=== PATIENT | female | born 1975 ===

== ENCOUNTER 2019-03-25 09:42 | Outpatient (CLI) | payer OTHER ==
[~2019-03-25] VITALS: Ht 106.7 cm; Wt 68.0 kg
[2019-03-25 09:57] VITALS: BP 116/73
[2019-03-25 10:39] LABS: BASOPHILS % (AUTO) 0 % (0-10); EOSINOPHILS % (AUTO) 13 % (0-10); HEMATOCRIT 36 % (35-52); HEMOGLOBIN 11.5 G/DL (11.5-16.0); LYMPHOCYTES % (AUTO) 41 % (12-44); MEAN CORPUSCULAR HEMOGLOBIN 28 PG (25-34); MEAN CORPUSCULAR HGB CONC 32 G/DL (32-36); MEAN CORPUSCULAR VOLUME 86 FL (80-99); MEAN PLATELET VOLUME 11.5 FL (7.4-10.4); MONOCYTES # (AUTO) 0.5 X 10^3 (0.0-1.0); MONOCYTES % (AUTO) 7 % (0-12); NEUTROPHILS # (AUTO) 2.9 X 10^3 (1.8-7.8); NEUTROPHILS % (AUTO) 39 % (42-75); PLATELET COUNT 334 10^3/uL (130-400); RED CELL DISTRIBUTION WIDTH 15.3 % (10.0-14.5); WHITE BLOOD COUNT 7.4 10^3/uL (4.3-11.0)
[2019-03-25 11:14] LABS: EOSINOPHILS % (MANUAL) 11 %; LYMPHOCYTES % (MANUAL) 44 %; MONOCYTES % (MANUAL) 5 %; NEUTROPHILS % (MANUAL) 40 %; RBC MORPH NORMAL
[2019-03-31] MEDS ORDERED: IBUP-1780 PO (06:55)
[2019-03-31] MEDS ORDERED: ACET-77 PO (06:55)
[2019-03-31] MEDS ORDERED: DOCU100C37 PO (06:55)
[2019-03-31] MEDS ORDERED: OXC5T PO (06:55)
== END 2019-03-25 11:01 | disposition home or self-care (01) ==
LOC: PREOP 09:42
PROVIDERS: ATTEND Obstetrics & Gynecology
DX: Z01.818 Encounter for other preprocedural examination (principal); M48.02 Spinal stenosis, cervical region; T83.39XA Other mechanical complication of intrauterine contraceptive device, initial encounter; R10.2 Pelvic and perineal pain
CPT/HCPCS: 36415; 85007; 85027; 86850; 86900; 86901; 87081

== ENCOUNTER 2019-03-30 06:09 | Inpatient (IN) | payer OTHER ==
[~2019-03-30] VITALS: Ht 106.7 cm; Wt 68.0 kg
[2019-03-30] VITALS (13 sets, daily range): BP systolic 118–161; BP diastolic 60–92
[2019-03-30] MEDS ORDERED: metroNIDAZOLE 500MG/100ML IVPB 100 ML IV ONE (06:15)
[2019-03-30] MEDS ORDERED: ceFAZolin 2 GM/50 ML NS 50 ML IV ONE (06:15)
[2019-03-30] MEDS: LACTATED RINGERS 1,000 ML IV PRN ×4 (06:35→18:10)
[2019-03-30] MEDS ORDERED: ROCURONIUM 10 MG/ML 5 ML SYRINGE IV ONE (06:45)
[2019-03-30] MEDS ORDERED: SEVOFLURANE (ULTANE) 15 ML INHAL SOLN ONE ×2 (06:45→09:02)
[2019-03-30] MEDS ORDERED: ONDANSETRON 4 MG/2 ML (SDV) Z0FRAN ONE (06:45)
[2019-03-30] MEDS ORDERED: CATHETER FLUSH 10 ML SYR IV PRN (06:45)
[2019-03-30] MEDS ORDERED: MIDAZOLAM 2 MG/2 ML (VERSED) VIAL ONE (06:45)
[2019-03-30] MEDS ORDERED: fentaNYL INJECTION 100 MCG/2 ML AMP ONE ×2 (06:45→10:23)
[2019-03-30] MEDS ORDERED: DEXAMETHASONE 10 MG/ML (DECADRON) 1 ML VIAL ONE (06:45)
[2019-03-30] MEDS ORDERED: proPOfol 200 MG/20 ML (DIPRIVAN) VIAL IV ONE (06:45)
[2019-03-30] MEDS ORDERED: LIDOCAINE PF 2% 5 ML (XYLOCAINE) VIAL ONE (06:45)
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
[2019-03-30] MEDS ORDERED: ROPIVACAINE 5MG/ML 30ML VIAL ONE (07:00)
[2019-03-30] MEDS ORDERED: HYDROmorphone 2 MG/ML VIAL (DILAUDID) ONE (07:43)
[2019-03-30] MEDS ORDERED: GLYCOPYRROLATE 0.2 MG/ML (ROBINUL) 2 ML VIAL ONE (07:44)
[2019-03-30] MEDS ORDERED: NEOSTIGMINE 3 MG/3 ML VIAL ONE (07:44)
[2019-03-30] MEDS: KETOROLAC 30 MG/ML VIAL IVP SCH ×3 (08:30→18:55)
[2019-03-30] MEDS ORDERED: KETOROLAC 30 MG/ML VIAL ONE (08:33)
[2019-03-30] MEDS ORDERED: D5 LR IV SOLUTION 1,000 ML IV SCH (09:04)
--- NOTE | 2019-03-30 09:04 | Operative Report ---
Operative Report Date of Procedure/Surgery Mar 30, 2019 Surgeon (s) LANE COLLINS DO Clerical Aide Teacher (s): None Post-Operative Diagnosis Pelvic Pain 2. Cervical Stenosis 3. IUD in place Procedure Performed Total Abdominal Hysterectomy with Bilateral Salpingo-oophorectomy Description of Procedure Anesthesia Type: General Estimated blood loss (mL): 250 ml Specimen(s) collected/removed Uterus (with IUD in place), Fallopian Tubes, Ovaries, Old Skin Scar Packing: None Description of the Procedure Ms. Gray was taken to the Operating Room with IV fluids running. Once in the OR, general anesthesia was administered without difficulty. A Masterson cathete r was inserted. In the supine position she was prepped and draped in the normal sterile fashion. A vertical elliptical incision was made over her previous skin scar. The old skin skin scar was removed and sent to pathology. The incision was carried down to the underlying layer of the fascia. The fascia was nicked in the midline. This incision was extended superiorly and inferiorly. The rectus muscle was dissected off bluntly and sharply, then in the midline. The peritoneum was identified, entered sharply, extended superiorly and inferiorly. The O'Marty-O'Kelly self-retaining retractor was inserted. The bowel was packed away with moist laparotomy sponges. The uterus was grasped with the Melvi clamp. The round ligaments were identified, doubly clamped, cut and suture ligated with 0-Vicryl. The vesicouterine peritoneum was transected and the bladder was manually pushed caudally with a Raytec sponge. The infundibulopelvic ligament, bilaterally was doubly clamped, transected and suture ligated with 0-Vicryl. The fallopian tubes and ovaries were removed to increase visualization. The remainder of the broad ligament and uterine vessels were serially clamped, transected and suture ligated with 0-Vicryl. The uterus was then excised from the vaginal confines. The vaginal cuff was closed with 0- Vicryl and attached to the round ligaments. The vesicouterine peritoneum was reapproximated. A moderate amount of irrigation was undertaken. Hemostasis was noted throughout the pelvic cavity. The peritoneum was approximated with 3-0 Vicryl. The fascia was closed 0-Vicryl. The subcutaneous tissues were approximated with 3-0 Plain Gut. The skin was closed in an interrupted manner with 4-0 Monocryl. A sterile bandage was applied. Sponge, needle and instrument counts were correct x 3. She was taken to the Recovery Room in good and stable condition. Findings of the Procedure Normal appearing uterus, tubes and ovaries. Allergies and Home Medications Allergies Coded Allergies: No Known Drug Allergies (Unverified , 03/25/19) Home Medications No Active Prescriptions or Reported Meds Patient Home Medication List Home Medication List Reviewed: Yes LANE COLLINS DO Mar 30, 2019 09:04
[2019-03-30] MEDS ORDERED: ONDANSETRON 4 MG/2 ML (SDV) Z0FRAN IVP PRN ×3 (09:15)
[2019-03-30] MEDS ORDERED: fentaNYL INJECTION 100 MCG/2 ML AMP IVP PRN (09:15)
[2019-03-30] MEDS ORDERED: ACETAMINOPHEN 500 MG TAB (TYLENOL) PO PRN (09:15)
[2019-03-30] MEDS ORDERED: HYDROmorphone 2 MG/ML VIAL (DILAUDID) IV ONE (09:15)
--- NOTE | 2019-03-30 10:00 | NUR ---
Received report from Nadira Richard Rn from PACU. at bedside - and neither speak Eritrean well. VSS, leblanc patent with clear yellow urine. LCTA, bowel sounds hypoactive. IV in rt hand and infusing without difficulty. Pt denies nausea. Using phone for translation due to language barrier. SCD's on. Midline incision covered with original ABD dressing. Ice to incision.
[2019-03-30] MEDS ORDERED: LORazepam INJ 2 MG/ML (ATIVAN) VIAL IVP ONE (12:00)
[2019-03-30] MEDS ORDERED: NS IV 1000 ML 1,000 ML IV SCH ×3 (19:15→22:15)
--- NOTE | 2019-03-30 20:00 | NUR ---
Daughter present in room with mother, adult daughter interpret education and POC, No further questions from pt at this time.
[2019-03-30] MEDS ORDERED: ZOLPIDEM 5 MG (AMBIEN) TAB PO SCH (21:00)
[2019-03-31] MEDS: KETOROLAC 30 MG/ML VIAL IVP SCH (01:49)
[2019-03-31 04:00] VITALS: BP 113/59
[2019-03-31] MEDS ORDERED: BISACODYL 10 MG SUPP (DULCOLAX) PR NR (05:00)
[2019-03-31] MEDS ORDERED: MILK OF MAGNESIA 400 MG/5 ML 30 ML UDC PO NR ×2 (05:00→10:00)
--- NOTE | 2019-03-31 05:28 | NUR ---
Pt leblanc d/sarita and am medications given, pt resting in bed and will call when the need to void or a have a stool occurs
--- NOTE | 2019-03-31 05:49 | NUR ---
Pt up to void, 200ml of pink tinged urine, pt back to bed with no stool.
--- NOTE | 2019-03-31 06:37 | NUR ---
Dr Montes to see pt, dressing off and POC discussed, pt may discharge after BM and regular diet. Pt agrees with POC.
--- NOTE | 2019-03-31 06:45 | NUR ---
Pt up to void another 200 ml clear yellow urine.
--- NOTE | 2019-03-31 06:51 | Discharge Summary ---
Diagnosis/Chief Complaint Date of Admission Mar 30, 2019 at 06:09 Date of Discharge March 31, 2019 Discharge Date: Mar 31, 2019 Discharge Time: 12:00 Admission Diagnosis Admission Diagnosis Pelvic Pain 2. Cervical Stenosis 3. IUD in place Discharge Diagnosis Pelvic Pain 2. Cervical Stenosis 3. IUD in place Reason Hospital Visit Ms. Gray is admitted for scheduled surgery, Total Abdominal Hysterectomy with Bilateral Salpingo-oophorectomy secondary to uncontrolled pelvic pain, with an IUD in place and cervical stenosis Discharge Summary Hospital Course Was the Problem List Reviewed?: Yes Hospital Course Ms. Last was admitted for scheduled surgery, Total Abdominal Hysterectomy with Bilateral Salpingo-oophorectomy. The surgery was performed without comp lications. On her day of surgery, she was started on IV and oral pain medications along with other comfort measures--her day was unremarkable. Postoperative Day #1, she was given medications to increase her bowel function, her Masterson catheter was discontinued, she was allowed to ambulate and shower. Also, she was placed on oral pain medication only. At the time of my interview Ms. Gray was without complaint. Her vital signs remained stable throughout her hospitalization. Once she has a bowel movement and tolerates a Regular Diet she will be discharge to home with instructions, prescriptions and a follow up appointment. Procedures None. Discharge Physical Examination Allergies: Coded Allergies: No Known Drug Allergies (Unverified , 03/25/19) Vitals & I&Os Vital Signs Date Time Temp Pulse Resp B/P (MAP) Pulse Ox O2 Delivery O2 Flow Rate FiO2 03/31/19 04:00 37.8 93 16 113/59 96 Room Air 03/30/19 09:40 1 General Appearance: Alert, Oriented X3, Cooperative HEENT: Atraumatic Respiratory: Clear to Auscultation, Normal Air Movement Cardiovascular: Regular Rate, No Murmurs Abdominal: Normal Bowel Sounds, Soft, Other (Mildly tender, no rebound or guarding) Extremities: No Clubbing, No Cyanosis Skin: No Rashes Neuro: Normal Gait, Normal Speech Psych/Mental Status: Mental Status NL Discharge Home Medications Reviewed and agree with Discharge Medication list on patient's Discharge Instruction sheet Instructions to Patient/Family Please see electronic discharge instructions given to patient. Clinical Quality Measures DVT/VTE Risk/Contraindication: Risk Factor Score Per Nursin RFS Level Per Nursing on Admit: 1=Low/No VTE PPX SEALS,LANE E DO Mar 31, 2019 06:51
[2019-03-31] MEDS ORDERED: DOCU100C37 PO (06:55)
[2019-03-31] MEDS ORDERED: OXC5T PO (06:55)
[2019-03-31] MEDS ORDERED: IBUP-1780 PO (06:55)
[2019-03-31] MEDS ORDERED: ACET-77 PO (06:55)
--- NOTE | 2019-03-31 07:00 | NUR ---
PT UP TO BR VOIDED WITHOUT DIFFICULTY. INITIAL ASSESSMENT COMPLETED AFTER RETURNING TO BED, NO DISTRESS NOTED SEE INTERVENTIONS FOR DETAILED ASSESSMENT, PLAN OF CARE REVIEWED WITH PT AND S/O WITH GOGGLE TRANSLATE ASSIST. NO QUESTIONS NOTED WILL MONITOR.
--- NOTE | 2019-03-31 07:59 | Anesthesia-General Post-Op ---
General Patient Condition Mental Status/LOC: Same as Preop Cardiovascular: Satisfactory Nausea/Vomiting: Absent Respiratory: Satisfactory Pain: Controlled Complications: Absent Post Op Complications Complications None Follow Up Care/Instructions Patient Instructions None needed. Anesthesia/Patient Condition Patient Condition Patient is doing well, no complaints, stable vital signs, no apparent adverse anesthesia problems. No complications reported per nursing. HUMPHREY MEJIA CRNA Mar 31, 2019 07:59
[2019-03-31 08:00] VITALS: BP 115/56
--- NOTE | 2019-03-31 08:45 | NUR ---
AMBULATED TO BR WITH ASSIST, +BM NOTED, VOIDED WITHOUT DIFFICULTY.
[2019-03-31] MEDS ORDERED: DOCUSATE SODIUM 100 MG (COLACE) CAP PO SCH (09:00)
[2019-03-31] MEDS ORDERED: IBUPROFEN 800 MG (MOTRIN) TAB PO SCH (09:15)
--- NOTE | 2019-03-31 09:15 | NUR ---
ASSISTED PT TO BR, +VOID AND BM NOTED, SCHEDULED MEDS GIVEN. PAIN MEDS GIVEN.
[2019-03-31 11:16] VITALS: BP 108/58
--- NOTE | 2019-03-31 13:40 | NUR ---
FLUFF GAUZE TO INCISION, D/C INSTRUCTIONS EXPLAINED WITH GOGGLE TRANSLATE ASSIST, FAMILY AT BEDSIDE, QUESTIONS ANSWERED, PT VERBALIZES UNDERSTANDING. IV HEP LOCKED REMOVED.
--- NOTE | 2019-03-31 14:00 | NUR ---
PT TRANSPORT BY WC TO PRIVATE CAR FOR D/C HOME, S/O AND THIS RN AT SIDE, NO DISTRESS NOTED, PT VERBALIZES UNDERSTANDING OF FOLLOW UP CARE AND INSTRUCTIONS.
--- NOTE | 2019-04-03 08:39 | Physician Query Clarification ---
PQ-Link Path Diagnosis Admission/Discharge Admission Date: Mar 30, 2019 at 06:09 Discharge Date: Mar 31, 2019 at 14:00 The medical record reflects the following: Pelvic pain The pathology report findings document: subserosal, intramural leiomyomata, Lt. fallopian paratubal cysts, Bilateral ovarian multfunctional cysts Question: Do you agree with the pathology report findings of subserosal, intramural leiomyomata, Lt. fallopian paratubal cysts, Bilateral ovarian multfunctional cysts ? Please document a response in Progress Notes or Discharge Summary. 1. Agree with pathological diagnosis of subserosal, intramural leiomyomata, Lt. fallopian paratubal cysts, Bilateral ovarian multfunctional cysts . 2. No - Do not agree with pathology findings of subserosal, intramural leiomyomata, Lt. fallopian paratubal cysts, Bilateral ovarian multfunctional cysts . 3. Other, with explanation of the clinical findings. 4. Clinically undetermined, no explanation for the clinical findings. Is is appropriate for a provider to add additional documentation (addenda) to the record to explain the evaluation & care up to 30 days post-discharge. See [facility] and Patient Record Guidelines below. The [facility] Chapter Record of Care, Standard; RC.01.03.01EP 1: "The hospital has a written policy that required timely entry of information into the medical record." According to [facility] Patient Record Guidelines, ARTICLE XXI. CORRECTIONS AND ADDENDA, Modifications (addenda amendments, corrections and retractions) should be made timely and no later than regulatory requirements for record completion (i.e. 30 days post discharge). Official coding guidelines require coders to query the physician for agreement with pathology findings that occur during the encounter. Coders are not allowed to pull information directly from the path reports. PHYSICIAN RESPONSE Pathology Report Findings: Yes,agree w/path dx as documented Please remember a lack of response to the above will prompt a phone page by CDI/Coding staff. In responding to this query, please exercise your independent professional judgment. The purpose of this communication is to more accurately reflect the complexity of your patients condition. The fact that a question is asked does not imply that any particular answer is desired or expected. Thank you for your timely response to this clarification. Requestors name: Sha THIS PHYSICIAN QUERY FORM IS A PERMANENT PART OF THE MEDICAL RECORD SHA JEONG Apr 03, 2019 08:[address] COLL[address] DO Apr 06, 2019 07:05
== END 2019-03-31 14:00 | disposition home or self-care (01) | DRG 743 ==
LOC: 4TH 06:09 → SURG 06:10 → EDSTATUS 07:30 → WS 10:23
PROVIDERS: ADMIT Obstetrics & Gynecology; ATTEND Obstetrics & Gynecology
PROC: 0UTC0ZZ Resection of Cervix, Open Approach (ICD-10-PCS; 2019-03-30)
PROC: 0UT20ZZ Resection of Bilateral Ovaries, Open Approach (ICD-10-PCS; 2019-03-30)
PROC: 0UT70ZZ Resection of Bilateral Fallopian Tubes, Open Approach (ICD-10-PCS; 2019-03-30)
PROC: 0UT90ZZ Resection of Uterus, Open Approach (ICD-10-PCS; principal; 2019-03-30 07:15)
DX: D25.2 Subserosal leiomyoma of uterus (principal); D25.1 Intramural leiomyoma of uterus; N83.8 Other noninflammatory disorders of ovary, fallopian tube and broad ligament; N83.201 Unspecified ovarian cyst, right side; N83.202 Unspecified ovarian cyst, left side; N88.2 Stricture and stenosis of cervix uteri
CPT/HCPCS: 36415; 84703; 86850; 86900; 86901; 88307; 94664

== ENCOUNTER → 2020-02-29 | Outpatient (CLI) | payer SELFPAY ==
[~2020-02-29] MED LIST: ACET-78 PO; DOCU100C37 PO; IBUP-1780 PO; OXC5T PO
--- NOTE | 2020-02-29 17:51 | Diagnostic Imaging Report ---
PROCEDURE: CT abdomen and pelvis with contrast only. TECHNIQUE: Multiple contiguous axial images were obtained through the abdomen and pelvis after the administration of intravenous contrast. Auto Exposure Controls were utilized during the CT exam to meet ALARA standards for radiation dose reduction. INDICATION: Left lower quadrant abdominal pain. FINDINGS: There is low density throughout the liver indicating steatosis. No focal hepatic or splenic abnormality is identified. Gallbladder, pancreas, and adrenal glands are also unremarkable. No renal abnormality is identified. There is excretion of contrast from both kidneys. There is no evidence of free fluid within the abdomen or pelvis. Partially opacified urinary bladder is unremarkable. There is mild L5-S1 degenerative disc disease with disc bulging and adjacent degenerative facet arthropathy. There is no appendiceal region inflammation or fluid collection although the appendix is not definitely visualized. IMPRESSION: Hepatic steatosis without evidence of acute abnormality within the abdomen or pelvis. There is localized degenerative change at the L5-S1 junction. Dictated by: Dictated on workstation # [id number]
== END ==
LOC: RAD 15:04
PROVIDERS: ATTEND Nurse Practitioner
DX: K76.0 Fatty (change of) liver, not elsewhere classified (principal); M47.817 Spondylosis without myelopathy or radiculopathy, lumbosacral region; N94.10 Unspecified dyspareunia; G89.29 Other chronic pain
CPT/HCPCS: 74160

== ENCOUNTER → 2020-09-27 | Outpatient (CLI) | payer OTHER ==
--- NOTE | 2020-09-27 09:55 | Diagnostic Imaging Report ---
INDICATION: LLQ pain. TECHNIQUE: Multiple Real-time armstrong scale sonographic images of the abdomen. CORRELATION STUDY: None. FINDINGS: LIVER: Normal echotexture within the visualized portions of the liver. There is normal, hepatopetal direction of flow within the main portal vein. Liver length is 18.6 cm. GALLBLADDER: No shadowing gallstones or pericholecystic fluid. COMMON BILE DUCT: Upper limits of normal at 0.5 cm. PANCREAS: Limited in visualization. The visualized portions appearing unremarkable. SPLEEN: Obscured and not well visualized. ABDOMINAL AORTA: Unremarkable. INFERIOR VENA CAVA: Limited in visualization. RIGHT KIDNEY: 10.4 x 5.2 x 5.4 cm. Unremarkable. LEFT KIDNEY: 10.5 x 5.3 x 5.2 cm. Unremarkable. OTHER: None. IMPRESSION: Unremarkable-appearing abdominal ultrasound evaluation. Dictated by: Dictated on workstation # [id number]
== END ==
LOC: RAD 08:45
PROVIDERS: ATTEND Surgery
DX: R10.32 Left lower quadrant pain (principal)
CPT/HCPCS: 76700

== ENCOUNTER 2020-11-01 05:37 | Outpatient (CLI) | payer OTHER ==
[~2020-11-01] VITALS: Ht 147.3 cm; Wt 65.8 kg
== END 2020-11-02 09:45 | disposition home or self-care (01) ==
LOC: PREOP 05:37
PROVIDERS: ATTEND Surgery
DX: Z01.818 Encounter for other preprocedural examination (principal)

== ENCOUNTER 2020-11-08 07:49 | Day surgery (SDC) | payer OTHER ==
[2020-11-08] VITALS (8 sets, daily range): BP systolic 106–128; BP diastolic 60–71
[~2020-11-08] VITALS: Ht 147.3 cm; Wt 65.8 kg
[2020-11-08] MEDS ORDERED: LACTATED RINGERS 1,000 ML IV ONE (07:55)
[2020-11-08] MEDS ORDERED: proPOfol 200 MG/20 ML (DIPRIVAN) VIAL IV ONE (08:06)
[2020-11-08] MEDS ORDERED: MIDAZOLAM 2 MG/2 ML (VERSED) VIAL ONE (08:07)
--- NOTE | 2020-11-08 08:10 | Progress Note-Pre Operative ---
Pre-Operative Progress Note H&P Reviewed The H&P was reviewed, patient examined and no changes noted. Date Seen by Provider: Nov 08, 2020 Time Seen by Provider: 08:10 Date H&P Reviewed: Nov 08, 2020 Time H&P Reviewed: 08:10 Pre-Operative Diagnosis: llq abd pain FAISAL ANDREWS DO Nov 08, 2020 08:10
[2020-11-08] MEDS ORDERED: LACTATED RINGERS 1,000 ML IV PRN (08:15)
--- NOTE | 2020-11-08 08:44 | Progress Note-Post Operative ---
Post-Operative Progess Note Surgeon (s)/Windmill Mechanic (s) Surgeon FAISAL ANDREWS DO Windmill Mechanic: na Pre-Operative Diagnosis llq abd pain Post-Operative Diagnosis descending colon polyp Procedure & Operative Findings Date of Procedure 11/08/20 Procedure Performed/Findings colonoscopy c hot bx polypectomy Anesthesia Type per mda Estimated Blood Loss Estimated blood loss (mL): none Specimens/Packing Specimens Removed descending colon polyp FAISAL ANDREWS DO Nov 08, 2020 08:44
--- NOTE | 2020-11-08 08:45 | Discharge Inst-Simple/Standard ---
Discharge Inst-Standard Patient Instructions/Follow Up Plan of Care/Instructions/FU: 2 weeks Kirby Activity as Tolerated: Yes Discharge Diet: Regular Diet (high fiber) FAISAL ANDREWS DO Nov 08, 2020 08:45
--- NOTE | 2020-11-08 12:59 | Anesthesia-General Post-Op ---
MAC Patient Condition Mental Status/LOC: Same as Preop Cardiovascular: Satisfactory Nausea/Vomiting: Absent Respiratory: Satisfactory Pain: Controlled Complications: Absent Post Op Complications Complications None Follow Up Care/Instructions Patient Instructions None needed. Anesthesiology Discharge Order Discharge Order Patient was seen this morning after the procedure and she was doing well, no complaints, stable vital signs, no apparent adverse anesthesia problems. CLARK SINGLETON DO Nov 08, 2020 12:59
--- NOTE | 2020-11-08 14:02 | OPERATIVE REPORT ---
DATE OF SERVICE: 11/08/2020 PREOPERATIVE DIAGNOSIS: Left lower quadrant abdominal pain. POSTOPERATIVE DIAGNOSIS: Descending colon polyp. PROCEDURE: Colonoscopy with hot biopsy polypectomy x1. SURGEON: Faisal Orr DO ANESTHESIA: Per MDA. ESTIMATED BLOOD LOSS: None. COMPLICATIONS: None. INDICATIONS: The patient is a 45-year-old female with left lower quadrant abdominal pain. She understands risks and benefits of procedure and wished to proceed with procedure. Consent was signed in the chart. DESCRIPTION OF PROCEDURE: The patient was taken to the endoscopy suite, placed in left lateral recumbent position. Timeout was performed. Digital rectal exam was performed. There were no palpable polyps, masses or ulcerations. Scope was inserted in the rectum and advanced all the way to cecum with minimal difficulty. Prep was adequate. Scope was then slowly retracted back. There were no polyps, masses or ulcerations within the cecum, ascending, transverse colon. In the descending colon, a small polyp was present, which hot biopsy polypectomy was performed. Scope was then continuously retracted back. No polyps, masses or ulcerations within the remainder of the descending and sigmoid colon. Once in the rectum, scope was retroflexed noting no other pathology. Scope was returned to its normal position, slowly withdrawn until completely removed. The patient tolerated procedure well without any complications. She was taken to recovery room in stable condition. RECOMMENDATIONS: The patient will need repeat colonoscopy in 5 years. Any issues before that be seen at that time. The patient will follow up on pathology in 2 weeks and see how her symptoms are doing. We would recommend high fiber diet. Job ID: [id number] DocumentID: [id number] Dictated Date: 11/08/2020 08:47:41 Unit Director Date: 11/08/2020 14:01:10 Dictated By: FAISAL ORR DO
== END 2020-11-08 09:30 | disposition home or self-care (01) ==
LOC: ENDO 07:49
PROVIDERS: ATTEND Surgery
DX: D12.4 Benign neoplasm of descending colon (principal); Z90.710 Acquired absence of both cervix and uterus
CPT/HCPCS: 88305